=== PATIENT | female | born 1935 | race Caucasian/White ===

== ENCOUNTER 2018-10-03 16:23 | Emergency (ER) | payer MEDICARE, OTHER ==
[~2018-10-03] VITALS: Ht 162.6 cm; Wt 74.8 kg
[~2018-10-03 16:23] MED LIST: AMLO5 PO; ASPI81CH PO; Ativan0.5 MG PO; CHLO25B PO; ERGO400 PO; EZET10 PO; FOSI10 PO; LEVSOD50 PO; MAGNESIUM400 MG PO; VITAMIN D-32000 UNI1 PO
[2018-10-03 18:54] LABS: Source, Urine Clean Catch
[2018-10-03 19:06] LABS: Bilirubin, Urine Neg (Neg); Blood, Urine Neg (Neg); Glucose Qualitative, Urine Neg (Neg); Ketones, Urine Neg (Neg); Leukocyte Esterase, Urine 2+ (Neg); Nitrite, Urine Neg (Neg); Protein, Urine Neg (Neg); Urobilinogen, Urine NORM (Normal)
[2018-10-03 19:06] LABS: BASOPHILS ABSOLUTE AUTO 0.07 K/mm3 (0.00-0.23); BASOPHILS PERCENT AUTO 0 % (0-2); EOSINOPHILS ABSOLUTE AUTO 0.11 K/mm3 (0.00-0.68); EOSINOPHILS PERCENT AUTO 1 % (0-6); Hematocrit 34.6 % (33.0-51.0); IMMATURE GRAN ABSOLUTE AUTO 0.24 K/mm3 (0.00-0.10); IMMATURE GRAN PERCENT AUTO 1 % (0-1); LYMPHOCYTES ABSOLUTE AUTO 2.28 K/mm3 (0.84-5.20); LYMPHOCYTES PERCENT AUTO 13 % (21-46); MONOCYTES ABSOLUTE AUTO 2.01 K/mm3 (0.16-1.47); MONOCYTES PERCENT AUTO 12 % (4-13); Mean Corpuscular HGB 31.7 pg (26.0-34.0); Mean Corpuscular HGB Conc 34.7 g/dL (31.5-36.5); Mean Corpuscular Volume 91 fL (80-100); Mean Platelet Volume 10.5 fL (9.1-12.4); NEUTROPHILS ABSOLUTE AUTO 12.51 K/mm3 (1.96-9.15); NEUTROPHILS PERCENT AUTO 73 % (41-73); Platelet Count 533 K/mm3 (150-400); RDW Coefficient Variation 13.7 % (11.7-14.2); RDW Standard Deviation 44.4 fL (35.1-46.3); Red Blood Cell Count 3.79 M/mm3 (3.80-5.20); White Blood Cell Count 17.22 K/mm3 (4.00-11.30)
[2018-10-03 19:27] LABS: Albumin, Blood 3.9 g/dL (3.4-5.0); Albumin/Globulin Ratio 0.8 (0.8-1.8); Bilirubin, Total 0.8 mg/dL (0.1-1.0); Bun/Creatinine Ratio 32.6 (12.0-20.0); Calcium, Blood 9.3 mg/dL (8.5-10.1); Creatinine, Blood 1.29 mg/dL (0.40-1.00); Globulin, Blood 5.2 g/dL (2.2-4.0); Potassium, Blood 3.7 mmol/L (3.5-5.5); Total Protein, Blood 9.1 g/dL (6.4-8.2)
[2018-10-03 19:38] LABS: Appearance, Urine Clear (Clear); Color, Urine Yellow (P-Yellow)
[2018-10-03 19:39] LABS: Red Blood Cells, Urine 0-2 /hpf (0-2)
[2018-10-03 19:40] LABS: Bacteria Few /hpf; Squamous Epithelial Cells Few /hpf (Few)
[2018-10-03] MEDS ORDERED: CEPH500 PO (21:13)
== END 2018-10-03 21:23 | disposition home or self-care (01) ==
LOC: ER 16:23
PROVIDERS: Emergency Medicine
DX: N39.0 Urinary tract infection, site not specified (principal); I10 Essential (primary) hypertension; Z88.1 Allergy status to other antibiotic agents; Z79.899 Other long term (current) drug therapy; Z79.82 Long term (current) use of aspirin
CPT/HCPCS: 36415; 72125; 80053; 81001; 84443; 85025; 87086; 96361; 96365; 99284-25; J0696; J2270; J7030

== ENCOUNTER → 2018-10-08 | Outpatient (CLI) | payer MEDICARE, OTHER ==
[~2018-10-08] MED LIST changes: +CEPH500 PO
[2018-10-08 17:02] LABS: Bilirubin, Urine Neg (Neg); Blood, Urine Neg (Neg); Glucose Qualitative, Urine Neg (Neg); Ketones, Urine Neg (Neg); Leukocyte Esterase, Urine 1+ (Neg); Nitrite, Urine Neg (Neg); Protein, Urine Neg (Neg); Specific Gravity, Urine 1.015 (1.003-1.022); Urobilinogen, Urine NORM (Normal)
[2018-10-08 17:27] LABS: Appearance, Urine Clear (Clear); Color, Urine Yellow (P-Yellow)
[2018-10-08 17:28] LABS: Bacteria Few /hpf; Red Blood Cells, Urine 0-2 /hpf (0-2); Squamous Epithelial Cells Rare /hpf (Few)
== END ==
LOC: LAB SHORT 16:52 → LAB 16:52
PROVIDERS: Nurse Practitioner Family
DX: N39.0 Urinary tract infection, site not specified (principal)
CPT/HCPCS: 81001; 87086

== ENCOUNTER 2019-05-21 11:56 | Day surgery (SDC) | payer MEDICARE, OTHER ==
[~2019-05-21] VITALS: Ht 162.6 cm; Wt 78.6 kg
[~2019-05-21 11:56] MED LIST changes: +GABA100 PO; +Neurontin600 MG PO; +VITAMIN D32000 UNI2 PO
--- NOTE | 2019-05-21 12:31 | NUR ---
PATIENT WAS ADMITTED FOR HER SCHEDULED PRCEDURE. THE PATIENT STATED THAT SHE HAS BEEN NPO SINCE 2299 ON 05/20. THE PATIENT'S LUNGS ARE CLEAR.
--- NOTE | 2019-05-22 | NUR ---
ASSUMING CARE OF PT AT THIS TIME. REPORT RECIEVED FROM ZI CHRISTIE.
[2019-05-22 04:33] LABS: BASOPHILS ABSOLUTE AUTO 0.05 K/mm3 (0.00-0.23); BASOPHILS PERCENT AUTO 0 % (0-2); EOSINOPHILS PERCENT AUTO 0 % (0-6); Hematocrit 33.9 % (33.0-51.0); Hemoglobin 11.1 g/dL (11.5-16.0); IMMATURE GRAN ABSOLUTE AUTO 0.23 K/mm3 (0.00-0.10); IMMATURE GRAN PERCENT AUTO 1 % (0-1); LYMPHOCYTES ABSOLUTE AUTO 0.94 K/mm3 (0.84-5.20); LYMPHOCYTES PERCENT AUTO 5 % (21-46); MONOCYTES ABSOLUTE AUTO 0.99 K/mm3 (0.16-1.47); MONOCYTES PERCENT AUTO 5 % (4-13); Mean Corpuscular HGB 29.3 pg (26.0-34.0); Mean Corpuscular HGB Conc 32.7 g/dL (31.5-36.5); Mean Corpuscular Volume 89 fL (80-100); Mean Platelet Volume 11.1 fL (9.1-12.4); NEUTROPHILS ABSOLUTE AUTO 17.79 K/mm3 (1.96-9.15); NEUTROPHILS PERCENT AUTO 89 % (41-73); Platelet Count 324 K/mm3 (150-400); RDW Coefficient Variation 13.6 % (11.7-14.2); RDW Standard Deviation 44.1 fL (35.1-46.3); Red Blood Cell Count 3.79 M/mm3 (3.80-5.20)
[2019-05-22 04:57] LABS: Bun/Creatinine Ratio 22.2 (12.0-20.0); Calcium, Blood 8.3 mg/dL (8.5-10.1); Creatinine, Blood 1.44 mg/dL (0.40-1.00); Magnesium, Blood 1.7 mg/dL (1.6-2.4); Potassium, Blood 4.4 mmol/L (3.5-5.5)
--- NOTE | 2019-05-22 06:27 | NUR ---
SHIFT SUMMARY: PT POD #1 FOR RIGHT TOTAL KNEE. VARGAS WRAP AND POLAR PACK IN PLACE. PT VERY DROWSY FROM SURGERY UPON ASSESSMENT AT APPROX 0015. PT NOW A&O X4. REPORTS FULL SENSATION TO EXTREMITIES. PAIN MANAGED WITH SCHED TYLENOL. GIVEN OXY AND TORADOL THIS MORNING PER EMAR. PT OUT OF BED THIS MORNING WITH 1 ASSIST AND FWW. VOIDING WELL. SALINE LOCKED. MAE REG DIET. DENIES N/V. CURRENTLY SITTING IN CHAIR.
[2019-05-22] MEDS ORDERED: ASPI325 PO (10:18)
[2019-05-22] MEDS ORDERED: OXYC5 PO (10:20)
[2019-05-22] MEDS ORDERED: Bactrim Ds Tab1 EACH PO (10:21)
[2019-05-22] MEDS ORDERED: PROM25 PO (10:21)
--- NOTE | 2019-05-22 15:26 | NUR ---
DISCHARGE SUMMARY PT A&OX4, VSS, LEFT FLOOR VIA WC WITH RN TO GO HOME WITH WITH ALL PERSONAL POSSESSIONS INCLUDING DISCHARGE PACKET AND BACTRIM SCRIPT, ALL OTHERS PT HAS IN POSSESSION. DC INS PROVIDED. PT AND REP UNDERSTANDING THOSE INSTRUCTIONS INCLUDING CHANGE DRESSINGS AND FU WITH SG, PT OUTPT, OK TO SHOWER, NO TUB/JACUZZI, FREQ SHORT AMBULAATION, REST/ICE/ELEVATION. IV DC'D.
== END 2019-05-22 15:29 | disposition home or self-care (01) ==
LOC: ORSCMMR 11:56 → ORD 13:45 → ORSCMMR 13:45 → SURS 18:44 → ORSCMMR 05-22 15:29
PROVIDERS: Orthopaedic Surgery
PROC: 8E0YXBZ Computer Assisted Procedure of Lower Extremity (ICD-10-PCS; principal; 2019-05-21 13:45)
PROC: 0SRC0J9 Replacement of Right Knee Joint with Synthetic Substitute, Cemented, Open Approach (ICD-10-PCS; principal; 2019-05-21 13:45)
DX: M17.11 Unilateral primary osteoarthritis, right knee (principal); I12.9 Hypertensive chronic kidney disease with stage 1 through stage 4 chronic kidney disease, or unspecified chronic kidney disease; N18.9 Chronic kidney disease, unspecified; E03.9 Hypothyroidism, unspecified; G62.9 Polyneuropathy, unspecified; Z79.899 Other long term (current) drug therapy
CPT/HCPCS: 36415; 73560-RT; 80048; 83735; 85025; 88300; 97110; 97116; 97162; 97530; C1713; C1776; J0171; J0360; J0690; J0735; J1100; J1885; J2250; J2370; J2405; J2550; J2704; J2765; J2795; J3010; J3370; J7120

== ENCOUNTER 2019-06-15 12:42 | Emergency (ER) | payer MEDICARE, OTHER ==
[~2019-06-15] VITALS: Ht 162.6 cm; Wt 78.5 kg
[~2019-06-15 12:42] MED LIST changes: +ASPI325 PO; +Bactrim Ds Tab1 EACH PO; +OXYC5 PO; +PROM25 PO
[2019-06-15 13:30] LABS: BASOPHILS ABSOLUTE AUTO 0.08 K/mm3 (0.00-0.23); BASOPHILS PERCENT AUTO 1 % (0-2); EOSINOPHILS ABSOLUTE AUTO 0.11 K/mm3 (0.00-0.68); EOSINOPHILS PERCENT AUTO 1 % (0-6); Hematocrit 31.8 % (33.0-51.0); Hemoglobin 10.3 g/dL (11.5-16.0); IMMATURE GRAN ABSOLUTE AUTO 0.12 K/mm3 (0.00-0.10); IMMATURE GRAN PERCENT AUTO 1 % (0-1); LYMPHOCYTES PERCENT AUTO 15 % (21-46); MONOCYTES ABSOLUTE AUTO 1.19 K/mm3 (0.16-1.47); MONOCYTES PERCENT AUTO 10 % (4-13); Mean Corpuscular HGB 28.9 pg (26.0-34.0); Mean Corpuscular HGB Conc 32.4 g/dL (31.5-36.5); Mean Corpuscular Volume 89 fL (80-100); Mean Platelet Volume 10.7 fL (9.1-12.4); NEUTROPHILS ABSOLUTE AUTO 8.85 K/mm3 (1.96-9.15); NEUTROPHILS PERCENT AUTO 73 % (41-73); Platelet Count 488 K/mm3 (150-400); Red Blood Cell Count 3.57 M/mm3 (3.80-5.20); White Blood Cell Count 12.15 K/mm3 (4.00-11.30)
[2019-06-15 13:51] LABS: Albumin, Blood 3.7 g/dL (3.4-5.0); Albumin/Globulin Ratio 0.7 (0.8-1.8); Bilirubin, Total 0.5 mg/dL (0.1-1.0); Bun/Creatinine Ratio 29.4 (12.0-20.0); Calcium, Blood 9.6 mg/dL (8.5-10.1); Creatinine, Blood 1.7 mg/dL (0.40-1.00); Potassium, Blood 4.3 mmol/L (3.5-5.5); Total Protein, Blood 8.7 g/dL (6.4-8.2)
[2019-06-15 14:26] LABS: Source, Urine Clean Catch
[2019-06-15 14:29] LABS: Bilirubin, Urine Neg (Neg); Blood, Urine Neg (Neg); Glucose Qualitative, Urine Neg (Neg); Ketones, Urine Neg (Neg); Leukocyte Esterase, Urine 2+ (Neg); Nitrite, Urine Neg (Neg); Protein, Urine Neg (Neg); Urobilinogen, Urine NORM (Normal)
[2019-06-15 14:31] LABS: Appearance, Urine Clear (Clear); Color, Urine Yellow (P-Yellow)
[2019-06-15 14:36] LABS: Red Blood Cells, Urine Not Seen /hpf (0-2)
[2019-06-15 14:37] LABS: Bacteria Many /hpf; Mucus Light (0-Heavy); Squamous Epithelial Cells Few /hpf (Few)
[2019-06-15] MEDS ORDERED: SUCR1 PO (16:08)
[2019-06-15] MEDS ORDERED: Pepcid20 MG PO (16:08)
[2019-06-15] MEDS ORDERED: Ativan0.5 MG PO (16:08)
== END 2019-06-15 17:50 | disposition home or self-care (01) ==
LOC: ER 12:42
PROVIDERS: Physician Assistant
DX: K29.00 Acute gastritis without bleeding (principal); E86.0 Dehydration; N39.0 Urinary tract infection, site not specified; F41.9 Anxiety disorder, unspecified; I10 Essential (primary) hypertension; Z96.651 Presence of right artificial knee joint; Z88.1 Allergy status to other antibiotic agents; Z79.899 Other long term (current) drug therapy; Z79.82 Long term (current) use of aspirin
CPT/HCPCS: 36415; 74022; 80053; 81001; 83690; 85025; 87077; 87086; 87186; 93005; 93010; 96361; 96365; 96375; 99284-25; C9113; J0696; J2060; J2405; J7030

== ENCOUNTER → 2019-07-02 | Outpatient (CLI) | payer MEDICARE, OTHER ==
[~2019-07-02] MED LIST changes: +Pepcid20 MG PO; +SUCR1 PO
== END | disposition home or self-care (01) ==
LOC: LAB 11:30 → LAB SHORT 11:30
DX: K29.00 Acute gastritis without bleeding (principal)
CPT/HCPCS: 87338

== ENCOUNTER 2021-12-11 16:25 | Inpatient (IN) | payer MEDICARE ==
[~2021-12-11] VITALS: Ht 162.6 cm; Wt 76.5 kg
[2021-12-11 17:03] LABS: BASOPHILS ABSOLUTE AUTO 0.05 K/mm3 (0.00-0.23); BASOPHILS PERCENT AUTO 0 % (0-2); EOSINOPHILS ABSOLUTE AUTO 0.03 K/mm3 (0.00-0.68); EOSINOPHILS PERCENT AUTO 0 % (0-6); Hematocrit 35.7 % (33.0-51.0); IMMATURE GRAN ABSOLUTE AUTO 0.26 K/mm3 (0.00-0.10); IMMATURE GRAN PERCENT AUTO 1 % (0-1); LYMPHOCYTES ABSOLUTE AUTO 0.78 K/mm3 (0.84-5.20); LYMPHOCYTES PERCENT AUTO 4 % (21-46); MONOCYTES ABSOLUTE AUTO 2.01 K/mm3 (0.16-1.47); MONOCYTES PERCENT AUTO 11 % (4-13); Mean Corpuscular HGB 30.2 pg (26.0-34.0); Mean Corpuscular HGB Conc 33.6 g/dL (31.5-36.5); Mean Corpuscular Volume 90 fL (80-100); Mean Platelet Volume 10.8 fL (9.1-12.4); NEUTROPHILS ABSOLUTE AUTO 15.33 K/mm3 (1.96-9.15); NEUTROPHILS PERCENT AUTO 83 % (41-73); Platelet Count 493 K/mm3 (150-400); RDW Coefficient Variation 13.8 % (11.7-14.2); RDW Standard Deviation 44.3 fL (35.1-46.3); Red Blood Cell Count 3.97 M/mm3 (3.80-5.20); White Blood Cell Count 18.46 K/mm3 (4.00-11.30)
[2021-12-11 17:19] LABS: Albumin, Blood 3.6 g/dL (3.4-5.0); Albumin/Globulin Ratio 0.7 (0.8-1.8); Bilirubin, Total 1.1 mg/dL (0.1-1.0); Calcium, Blood 9.5 mg/dL (8.5-10.1); Creatinine, Blood 1.45 mg/dL (0.40-1.00); Globulin, Blood 5.3 g/dL (2.2-4.0); Magnesium, Blood 2.1 mg/dL (1.6-2.4); Potassium, Blood 4.2 mmol/L (3.5-5.5); Total Protein, Blood 8.9 g/dL (6.4-8.2)
[2021-12-11 20:02] LABS: Source, Urine Clean Catch
[2021-12-11 20:05] LABS: Appearance, Urine Hazy (Clear); Bilirubin, Urine Neg (Neg); Blood, Urine 3+ (Neg); Color, Urine Yellow (P-Yellow); Glucose Qualitative, Urine Neg (Neg); Ketones, Urine Neg (Neg); Leukocyte Esterase, Urine 3+ (Neg); Nitrite, Urine Pos (Neg); Protein, Urine 2+ (Neg); Urobilinogen, Urine 1+ (Normal)
[2021-12-11 20:17] LABS: Base Excess Venous -1.9 mmol/L; Bicarbonate Venous 22.7 mmol/L (24.0-30.0); PCO2 Venous 40.2 mmHg (38-42); PO2 Venous 50.9 mmHg (38-42); pH Blood Venous 7.37 (7.34-7.37)
[2021-12-11 20:18] LABS: Bacteria Many /hpf; Red Blood Cells, Urine 0-2 /hpf (0-2); Squamous Epithelial Cells Not Seen /hpf (Few); White Blood Cells, Urine TNTC /hpf (0-5)
[2021-12-11] MEDS ORDERED: EUTHYROX50 MC1 PO (21:27)
[2021-12-11] MEDS ORDERED: EZETIMIBE10 M6 PO (21:27)
[2021-12-11] MEDS ORDERED: THERA-D2000 UNIT PO (21:54)
[2021-12-11] MEDS ORDERED: CHLO25B PO (21:55)
[2021-12-11] MEDS ORDERED: ASPI81CH PO (21:55)
--- NOTE | 2021-12-11 22:53 | NUR ---
ADMIT NOTE 86 YR OLD FEMALE ADMITTED TO FLOOR FROM THE ED WITH DX OF UTI/SEPSIS. SOME ANXIETY SHE FELT SHE WAS ABOUT TO FALL OUT OF THE BED, REASURRANCE GIVEN. SEEMED TO CALM. ALERT TO QUESTIONS ASKED. ORIENTED TO CALL LIGHT AND CALL LIGHT IN REACH
--- NOTE | 2021-12-12 01:14 | NUR ---
SPREADING MACHINE OPERATOR DOCUMENTATION REVIEWED, I AGREE WITH DOCUMENTATION, ETC
[2021-12-12 04:41] LABS: BASOPHILS ABSOLUTE AUTO 0.06 K/mm3 (0.00-0.23); BASOPHILS PERCENT AUTO 0 % (0-2); EOSINOPHILS ABSOLUTE AUTO 0.07 K/mm3 (0.00-0.68); EOSINOPHILS PERCENT AUTO 0 % (0-6); Hematocrit 32.6 % (33.0-51.0); Hemoglobin 10.8 g/dL (11.5-16.0); IMMATURE GRAN ABSOLUTE AUTO 0.17 K/mm3 (0.00-0.10); IMMATURE GRAN PERCENT AUTO 1 % (0-1); LYMPHOCYTES ABSOLUTE AUTO 1.43 K/mm3 (0.84-5.20); LYMPHOCYTES PERCENT AUTO 9 % (21-46); MONOCYTES PERCENT AUTO 15 % (4-13); Mean Corpuscular HGB 29.4 pg (26.0-34.0); Mean Corpuscular HGB Conc 33.1 g/dL (31.5-36.5); Mean Corpuscular Volume 89 fL (80-100); Mean Platelet Volume 10.7 fL (9.1-12.4); NEUTROPHILS ABSOLUTE AUTO 11.77 K/mm3 (1.96-9.15); NEUTROPHILS PERCENT AUTO 74 % (41-73); Platelet Count 434 K/mm3 (150-400); RDW Coefficient Variation 13.7 % (11.7-14.2); RDW Standard Deviation 43.8 fL (35.1-46.3); Red Blood Cell Count 3.67 M/mm3 (3.80-5.20)
--- NOTE | 2021-12-12 04:43 | NUR ---
STOKER INSTALLATION MECHANIC SUMMARY WAS ADMITTED EARLIER WITH SEPSIS DUE TO UTI. ALSO C/O LEFT LEG PAIN/DFFICULTY TO STAND AND WALK. SCHEDULED FOR MRI IN THE AM FOR SAID LEG. ALERT AND ORIENTED X 4. SOME ANXIETY BUT OTHERWISE RESTING QUIELTY. CALL LIGHT IN REACH
[2021-12-12 05:02] LABS: Bun/Creatinine Ratio 27.2 (12.0-20.0); Calcium, Blood 9.1 mg/dL (8.5-10.1); Creatinine, Blood 1.25 mg/dL (0.40-1.00); Potassium, Blood 4.2 mmol/L (3.5-5.5)
--- NOTE | 2021-12-12 18:44 | NUR ---
SHIFT SUMMARY PT A/O X2-3. SHE IS ANXIOUS AND FORGETFUL AT TIMES. SHE HAS SIGNIFICANT PAIN AND WEAKNESS IN HER L LEG. MRI DONE ON HER SPINE. WORKED WITH PHYSICAL THERAPY THIS SHIFT AND IS A 2 MAX ASSIST. TREATED PER EMR FOR PAIN. VSS. WILL REPORT TO HAY RN.
[2021-12-13 04:40] LABS: BASOPHILS ABSOLUTE AUTO 0.05 K/mm3 (0.00-0.23); BASOPHILS PERCENT AUTO 0 % (0-2); EOSINOPHILS ABSOLUTE AUTO 0.08 K/mm3 (0.00-0.68); EOSINOPHILS PERCENT AUTO 1 % (0-6); Hematocrit 31.3 % (33.0-51.0); Hemoglobin 10.2 g/dL (11.5-16.0); IMMATURE GRAN ABSOLUTE AUTO 0.15 K/mm3 (0.00-0.10); IMMATURE GRAN PERCENT AUTO 1 % (0-1); LYMPHOCYTES ABSOLUTE AUTO 1.31 K/mm3 (0.84-5.20); LYMPHOCYTES PERCENT AUTO 9 % (21-46); MONOCYTES ABSOLUTE AUTO 2.07 K/mm3 (0.16-1.47); MONOCYTES PERCENT AUTO 15 % (4-13); Mean Corpuscular HGB 28.9 pg (26.0-34.0); Mean Corpuscular HGB Conc 32.6 g/dL (31.5-36.5); Mean Corpuscular Volume 89 fL (80-100); Mean Platelet Volume 10.6 fL (9.1-12.4); NEUTROPHILS ABSOLUTE AUTO 10.62 K/mm3 (1.96-9.15); NEUTROPHILS PERCENT AUTO 74 % (41-73); Platelet Count 397 K/mm3 (150-400); RDW Coefficient Variation 13.8 % (11.7-14.2); RDW Standard Deviation 44.2 fL (35.1-46.3); Red Blood Cell Count 3.53 M/mm3 (3.80-5.20); White Blood Cell Count 14.28 K/mm3 (4.00-11.30)
[2021-12-13 05:33] LABS: Bun/Creatinine Ratio 26.3 (12.0-20.0); Calcium, Blood 9.1 mg/dL (8.5-10.1); Creatinine, Blood 1.37 mg/dL (0.40-1.00); Potassium, Blood 3.9 mmol/L (3.5-5.5)
--- NOTE | 2021-12-13 06:47 | NUR ---
SHIFT SUMMARY PATIENT ALERT AND ORIENTED X2. MEDICATED PER EMAR FOR PAIN. HAD NO COMPLAINTS OF SHORTNESS OF BREATH. NO ACUTE ISSUES NOTED OVERNIGHT. CALL LIGHT WITHIN REACH. REPORT GIVEN TO ONCOMING RN.
--- NOTE | 2021-12-13 19:38 | NUR ---
SHIFT SUMMARY- PT A/OX3, FORGETFUL AT TIMES. PT MEDICATED WITH TRAMADOL FOR LEFT LEG PAIN AND RIGHT SHOULDER PAIN. PT REPORTS LEFT LEG PAIN GOES FROM HIP TO FOOT. PT REFUSED PAIN MEDICATIONS THIS EVENING. PT PAINFUL TO TOUCH AND VERY SENSITIVE, PRIMARILY TO LEFT LEG. PT VERY WEAK, ONLY ABLE TO SIT AT EDGE OF BED WITH THERAPY, 2 ASSIST TURNING IN BED. LS CLEAR, ON RA. TELE SR AT 93. HEATON IN PLACE PATENT AND DRAINING, PER DR TO BE DC'D 12/14. PT RECEIVED 1L NS TODAY. PT WITH VERY POOR ORAL INTAKE, PT NOT EATING AND ONLY TAKES SIPS. ENSURE OFFIERED BUT DID NOT DRINK, ELECTROLYSIS INVESTIGATOR CONSULT PLACED. NO OTHER ACUTE CHANGES THIS SHIFT.
--- NOTE | 2021-12-14 04:13 | NUR ---
ROTOFORMER BACKTENDER SUMMARY HAS BEEN RESTING QUIETLY WITH FEW INTERRUPTIONS SINCE HS. PO FLUIDS AND DIET INTAKE ENCOURAGED BUT INTAKE STILL POOR. REQUESTED SCD OFF FOR A WHILE IT WAS CAUSING SOME DISCOMFORT TO LEFT LEG/ANKLE. HEATON DRAINING. CALL LIGHT IN REACH.
--- NOTE | 2021-12-14 10:35 | NUR ---
Responding to physician referral for a spiritual care consult. Pt. and spouse welcome my visit. Pt. is very unsettled about her hospitalization, and physical therapy in particular. Through theraputic listening can determine that this anxiety oos rooted by a past experience with aggressive physical therapy following a knee replacement. Provide a calming presence and attempt to normalize the pt. experience. Develop rapport with Pt. and spouse. Pt. displayed evidence of reduced anxiety. Spouse is a calming presence for pt. as well. Prayed for Pt. and spouse. Pt. and spouse both verbalize gratitude for the spiritual care visit.
--- NOTE | 2021-12-14 14:35 | NUR ---
Pt resting in bed upon arrival. This RN is accompanied by student driving instructor Omar. Pt is A&OX4 and reports 8/10 pain in her back and shoulder. Pt denies dyspnea at this time. Pt reports mild to moderate anxiety. Pt's at bedside. Engaged in therapeutic listening as Pt reports living with her in a 2 story home. She tears up as she mentions her sons in May of 2007. She reports having a daughter who lives in [place] and on occasion she comes up to help around the house. Pt's reports having to address family members and their health on his side of the family. He had to assist with finding placement for them and is medical POA, DPOA, and in charge of their estate when they pass. Pt reports uses a can and a walker around the house and is still indepent of her ADLs. Primary RN Suki in to offer anxiety medication to assist with tolerating scheduled MRI. Ended visit to allow Pt to rest. Pt agreeable for this RN to return tomorrow. Spoke with Primary RN Suki and discussed case. Palliative Care will F/U for advance care planning.
--- NOTE | 2021-12-14 18:35 | NUR ---
SHIFT SUMMARY- PT A/OX3 BUT FORGETFUL AT TIMES. PT REPORTS PAIN TO EVERYWHERE, PT VERY SENSITIVE TO TOUCH AND SCREAMS OUT, MOST PAINFUL TO LEFT LEG AND RIGHT SHOULDER. MRI COMPLETED TODAY, ATIVAN GIVEN X1 PRIOR TO MRI. PT ABLE TO SIT AT EDGE OF BED WITH THERAPY TODAY. 2 PERSON TURN IN BED. LS CLEAR, ON RA. TELE SR AT 91, TELE DC'D. PT REPORTS CHRONIC N/T TO BOTTOM OF FEET BUT WORSE ON THE LEFT. FLORINA OLSON'D TODAY, ATTENDS IN PLACE. NO BM TODAY, MIRALAX GIVEN. PT CONTINUES WITH VERY POOR ORAL INTAKE AND WILL ONLY TAKE 1-2 BITES AND SIPS, SPOUSE AT BEDSIDE T/O THE DAY ENCOURAGING PT TO EAT. ENSURES OFFERED BUT WILL ONLY TAKE A SIP. PALLIATIVE AND SPIRITUAL CARE IN TO SEE PT. PT ANXIOUS WITH ANY CARE. NO OTHER ACUTE CHANGES THIS SHIFT.
--- NOTE | 2021-12-15 04:48 | NUR ---
SHIFT SUMMARY: Patient rested throughout the night, VSS on RA, reporting pain to her right shoulder and left leg, patient yells out in pain with any movement and to light touch, new dose of scheduled oxycodone administered this evening, this seemed to help the patients pain a lot as she did not yell out as often with repositioning and attends change, patient is incontnent of urine, having urgency and frequency however minimal output noted, output that is noted is very concentrated, bladder scan complete and noted at only 150, patients PO intake is very poor, will pass on to day shift that patient may benefit from IV fluids, continued to encourage PO intake throughout the shift
[2021-12-15 07:26] LABS: BASOPHILS ABSOLUTE AUTO 0.07 K/mm3 (0.00-0.23); BASOPHILS PERCENT AUTO 1 % (0-2); EOSINOPHILS ABSOLUTE AUTO 0.18 K/mm3 (0.00-0.68); EOSINOPHILS PERCENT AUTO 1 % (0-6); Hematocrit 28.2 % (33.0-51.0); Hemoglobin 10.4 g/dL (11.5-16.0); IMMATURE GRAN PERCENT AUTO 2 % (0-1); LYMPHOCYTES ABSOLUTE AUTO 1.35 K/mm3 (0.84-5.20); LYMPHOCYTES PERCENT AUTO 9 % (21-46); MONOCYTES ABSOLUTE AUTO 1.87 K/mm3 (0.16-1.47); MONOCYTES PERCENT AUTO 13 % (4-13); Mean Corpuscular HGB 34.3 pg (26.0-34.0); Mean Corpuscular HGB Conc 36.9 g/dL (31.5-36.5); Mean Corpuscular Volume 93 fL (80-100); Mean Platelet Volume 10.6 fL (9.1-12.4); NEUTROPHILS ABSOLUTE AUTO 10.68 K/mm3 (1.96-9.15); NEUTROPHILS PERCENT AUTO 74 % (41-73); Platelet Count 389 K/mm3 (150-400); RDW Coefficient Variation 15.1 % (11.7-14.2); RDW Standard Deviation 44.2 fL (35.1-46.3); Red Blood Cell Count 3.03 M/mm3 (3.80-5.20); White Blood Cell Count 14.45 K/mm3 (4.00-11.30)
[2021-12-15 07:42] LABS: Bun/Creatinine Ratio 27.8 (12.0-20.0); Creatinine, Blood 1.26 mg/dL (0.40-1.00); Potassium, Blood 3.5 mmol/L (3.5-5.5)
[2021-12-15 12:27] LABS: Influenza A, PCR NEGATIVE (NEGATIVE); Influenza B, PCR NEGATIVE (NEGATIVE); Resp Syncytial Virus, PCR NEGATIVE (NEGATIVE); SARS-Cov-2 (COVID-19) PCR, MMC NEGATIVE (NEGATIVE)
--- NOTE | 2021-12-15 14:11 | NUR ---
Spiritual Care visit. Pt. is awake and sitting up in bed. Spouse is present. Pt. welcomes my visit. Pt. is displaying evidence of anxiety and nausea, while spouse attends to her. Pt. also displays evidence of reduced pain. Listen empathetically and provide a calming presence. Pt. displayed evidence of lower anxiety. Prayed for pt. Pt. and spouse both verbalized gratitude for the spiritual care visit.
--- NOTE | 2021-12-15 16:23 | NUR ---
Pt resting in bed with her eyes closed upon arrival. Pt is awake but recently received pain medication. Pt's spouse is at bedside. Pt does participate in conversation. Engaged in gentle advanced care planning. Discussed the importance of routine PCP visits. Pt and spouse agreeable to discuss code status. Educated on life sustaining treatments including risk factors and implications of CPR. Pt states she does not want CPR but would like to think about her wishes a little more. Discussed the importance of considering completing an advanced directive. Discussed the importance of appointing a healthcare customer assistance representative. Spouse reports having advanced directives at home but has not completed them yet. Educated on each section to complete and meaning of life support and artificial nutrition for each scenario. Pt reporting needing to void. Assisted CYNTHIA Nathan with placing bed alvarez for Pt. Ended visit to allow privacy. Pt and spouse agreeable for this RN to return tomorrow. Palliative Care will remain available.
--- NOTE | 2021-12-15 18:25 | NUR ---
SHIFT SUMMARY PT REPORTING NEED TO USE BEDPAN MULTIPLE TIMES TODAY. 2 PERSON TURN. HAD 2 EPISODES OF NAUSEA AND VOMITTING THIS MORNING BUT HASN'T HAD IT SINCE. REPORTS FEELING DIZZY AND THEN NAUSEATED THAT GOES AWAY THIS AFTERNOON. SUPPOSITORY GIVEN BUT NO RESULTS YET. EATING A BIT FOR SUPPER WHEN SHE HASN'T EATEN ANYTHING FOR OTHER MEALS TODAY. SIPPING ON ENSURE. SAT ON SIDE OF BED 2 TIMES WITH THERAPIES AND TOLERATED. KPAD APPLIED TO NECK AND R SHOULDER THIS EVENING.
[2021-12-16 05:15] LABS: BASOPHILS ABSOLUTE AUTO 0.06 K/mm3 (0.00-0.23); BASOPHILS PERCENT AUTO 0 % (0-2); EOSINOPHILS ABSOLUTE AUTO 0.18 K/mm3 (0.00-0.68); EOSINOPHILS PERCENT AUTO 1 % (0-6); Hematocrit 28.6 % (33.0-51.0); Hemoglobin 9.8 g/dL (11.5-16.0); IMMATURE GRAN ABSOLUTE AUTO 0.27 K/mm3 (0.00-0.10); IMMATURE GRAN PERCENT AUTO 2 % (0-1); LYMPHOCYTES ABSOLUTE AUTO 1.16 K/mm3 (0.84-5.20); LYMPHOCYTES PERCENT AUTO 7 % (21-46); MONOCYTES ABSOLUTE AUTO 1.78 K/mm3 (0.16-1.47); MONOCYTES PERCENT AUTO 11 % (4-13); Mean Corpuscular HGB 30.8 pg (26.0-34.0); Mean Corpuscular HGB Conc 34.3 g/dL (31.5-36.5); Mean Corpuscular Volume 90 fL (80-100); NEUTROPHILS ABSOLUTE AUTO 13.11 K/mm3 (1.96-9.15); NEUTROPHILS PERCENT AUTO 79 % (41-73); Platelet Count 449 K/mm3 (150-400); RDW Coefficient Variation 13.7 % (11.7-14.2); RDW Standard Deviation 43.8 fL (35.1-46.3); Red Blood Cell Count 3.18 M/mm3 (3.80-5.20); White Blood Cell Count 16.56 K/mm3 (4.00-11.30)
[2021-12-16 05:49] LABS: Bun/Creatinine Ratio 28.4 (12.0-20.0); Calcium, Blood 8.9 mg/dL (8.5-10.1); Creatinine, Blood 1.41 mg/dL (0.40-1.00); Potassium, Blood 3.8 mmol/L (3.5-5.5)
--- NOTE | 2021-12-16 06:17 | NUR ---
SHIFT SUMMARY PT MORE CONFUSED THIS EVENING. SLEPT WELL BUT WOKE UNSURE OF WHERE SHE WAS OR WHAT WAS GOING ON. REORIENTED EASILY BUT WOULD SHORTLY AFTER BE UNAWARE THAT SHE WAS IN THE HOSPITAL. AFEBRILE THIS EVENING. CONTINUES TO HAVE LOW URINE OUTPUT. PAINFUL AND FEARFUL WITH MOVEMENT. PT'S O2 SATS WITH MORNING VITALS 84% ON RA. PLACED PT ON 2 L TO GET O2 SATS > 90%. OTHERWISE VITAL SIGNS STABLE. PREVENTATIVE MEPILEX PLACED TO COCCYX AND HEELS.
--- NOTE | 2021-12-16 14:53 | NUR ---
DISCHARGE NOTE PT DISCHARGED TO [facility], PT TRANSPORTED VIA WHEELCAHIR, WITH AMBULANCE. TWO PERSON PIVOT TRANSFER TO WHEELCHAIR. PT HAD BM RIGHT BEFORE DISCHARGE, WAS SENT IN CLEAN DRY ATTENDS. PACKET WAS SENT WITH TRAFFIC LIEUTENANT, REPORT GIVEN TO KEENAN AT [facility]. @5017
[2021-12-16] MEDS ORDERED: Percocet 10-321 EACH PO (15:45)
[2021-12-16] MEDS ORDERED: OXYCODONE HCL E PO (15:47)
== END 2021-12-16 14:40 | DRG 872 ==
LOC: ER 16:25 → MEDS 21:57 → ENPENDDIS 12-16 13:07 → MEDS 12-16 14:40
PROVIDERS: Emergency Medicine; Family Medicine; Physician Assistant; Student in an Organized Health Care Education/Training Program; ADMIT Internal Medicine
DX: A41.51 Sepsis due to Escherichia coli [E. coli] (principal); N39.0 Urinary tract infection, site not specified; N17.9 Acute kidney failure, unspecified; E87.1 Hypo-osmolality and hyponatremia; Z20.822 Contact with and (suspected) exposure to COVID-19; D75.839 Thrombocytosis, unspecified; R79.89 Other specified abnormal findings of blood chemistry; R63.0 Anorexia; Z68.28 Body mass index [BMI] 28.0-28.9, adult; K59.00 Constipation, unspecified; N18.30 Chronic kidney disease, stage 3 unspecified; I12.9 Hypertensive chronic kidney disease with stage 1 through stage 4 chronic kidney disease, or unspecified chronic kidney disease; M62.81 Muscle weakness (generalized); E03.9 Hypothyroidism, unspecified; M54.50 Low back pain, unspecified; Z96.651 Presence of right artificial knee joint; Z88.1 Allergy status to other antibiotic agents; Z79.899 Other long term (current) drug therapy; Z79.82 Long term (current) use of aspirin; Z90.49 Acquired absence of other specified parts of digestive tract; Z90.89 Acquired absence of other organs; Z98.890 Other specified postprocedural states
CPT/HCPCS: 0241U; 36415; 51702; 71045; 72141; 72146; 72148; 80048; 80053; 81001; 82803; 83605; 83735; 84443; 84484; 85025; 87040; 87077; 87086; 87186; 96374; 97110; 97161; 97166; 97530; 97535; 99285-25; A9270; J0696; J2405; J7030

== ENCOUNTER 2022-01-04 16:02 | Observation (INO) | payer MEDICARE ==
[~2022-01-04] VITALS: Ht 162.6 cm; Wt 70.0 kg
[~2022-01-04 16:02] MED LIST changes: +EUTHYROX50 MC1 PO; +EZETIMIBE10 M6 PO; +OXYCODONE HCL E PO; +Percocet 10-321 EACH PO; +THERA-D2000 UNIT PO
[2022-01-04 16:53] LABS: BASOPHILS ABSOLUTE AUTO 0.06 K/mm3 (0.00-0.23); BASOPHILS PERCENT AUTO 0 % (0-2); EOSINOPHILS ABSOLUTE AUTO 0.14 K/mm3 (0.00-0.68); EOSINOPHILS PERCENT AUTO 1 % (0-6); IMMATURE GRAN ABSOLUTE AUTO 0.13 K/mm3 (0.00-0.10); IMMATURE GRAN PERCENT AUTO 1 % (0-1); LYMPHOCYTES ABSOLUTE AUTO 1.33 K/mm3 (0.84-5.20); LYMPHOCYTES PERCENT AUTO 10 % (21-46); MONOCYTES PERCENT AUTO 11 % (4-13); Mean Corpuscular HGB 32.2 pg (26.0-34.0); Mean Corpuscular HGB Conc 35.7 g/dL (31.5-36.5); Mean Corpuscular Volume 90 fL (80-100); Mean Platelet Volume 10.8 fL (9.1-12.4); NEUTROPHILS ABSOLUTE AUTO 10.31 K/mm3 (1.96-9.15); NEUTROPHILS PERCENT AUTO 77 % (41-73); Platelet Count 683 K/mm3 (150-400); RDW Coefficient Variation 14.2 % (11.7-14.2); RDW Standard Deviation 44.9 fL (35.1-46.3); Red Blood Cell Count 3.11 M/mm3 (3.80-5.20); White Blood Cell Count 13.37 K/mm3 (4.00-11.30)
[2022-01-04 17:00] LABS: Albumin/Globulin Ratio 0.5 (0.8-1.8); Bilirubin, Total 0.8 mg/dL (0.1-1.0); Bun/Creatinine Ratio 33.3 (12.0-20.0); Calcium, Blood 9.6 mg/dL (8.5-10.1); Creatinine, Blood 1.65 mg/dL (0.40-1.00); Globulin, Blood 5.5 g/dL (2.2-4.0); Magnesium, Blood 2.6 mg/dL (1.6-2.4); Potassium, Blood 3.4 mmol/L (3.5-5.5); Total Protein, Blood 8.5 g/dL (6.4-8.2)
[2022-01-04 20:50] LABS: Source, Urine Straight Cath
[2022-01-04 20:58] LABS: Appearance, Urine Hazy (Clear); Blood, Urine 1+ (Neg); Color, Urine Amber (P-Yellow); Glucose Qualitative, Urine Neg (Neg); Ketones, Urine Neg (Neg); Leukocyte Esterase, Urine 3+ (Neg); Nitrite, Urine Neg (Neg); Protein, Urine 1+ (Neg); Urobilinogen, Urine 2+ (Normal)
[2022-01-04 21:07] LABS: Bilirubin, Urine 1+ (Neg)
[2022-01-04 21:09] LABS: Bacteria Many /hpf; Renal Tubular Epi Cast 0-2 /lpf (0); Squamous Epithelial Cells Many /hpf (Few); WBC Cast 0-2 /lpf (0); White Blood Cells, Urine TNTC /hpf (0-5)
[2022-01-04 21:10] LABS: Renal Epithelial Rare /hpf (0-Rare); Transitional Epithelial Cells Mod /hpf (0-Rare)
[2022-01-05 01:44] LABS: BASOPHILS ABSOLUTE AUTO 0.05 K/mm3 (0.00-0.23); BASOPHILS PERCENT AUTO 0 % (0-2); EOSINOPHILS ABSOLUTE AUTO 0.06 K/mm3 (0.00-0.68); EOSINOPHILS PERCENT AUTO 1 % (0-6); Hematocrit 27.6 % (33.0-51.0); IMMATURE GRAN ABSOLUTE AUTO 0.11 K/mm3 (0.00-0.10); IMMATURE GRAN PERCENT AUTO 1 % (0-1); LYMPHOCYTES PERCENT AUTO 11 % (21-46); MONOCYTES ABSOLUTE AUTO 1.02 K/mm3 (0.16-1.47); MONOCYTES PERCENT AUTO 8 % (4-13); Mean Corpuscular HGB 30.3 pg (26.0-34.0); Mean Corpuscular HGB Conc 32.6 g/dL (31.5-36.5); Mean Corpuscular Volume 93 fL (80-100); Mean Platelet Volume 10.8 fL (9.1-12.4); NEUTROPHILS ABSOLUTE AUTO 9.75 K/mm3 (1.96-9.15); NEUTROPHILS PERCENT AUTO 79 % (41-73); Platelet Count 540 K/mm3 (150-400); RDW Coefficient Variation 14.5 % (11.7-14.2); Red Blood Cell Count 2.97 M/mm3 (3.80-5.20); White Blood Cell Count 12.29 K/mm3 (4.00-11.30)
[2022-01-05 01:59] LABS: Bun/Creatinine Ratio 33.1 (12.0-20.0); Calcium, Blood 9.1 mg/dL (8.5-10.1); Creatinine, Blood 1.63 mg/dL (0.40-1.00); Potassium, Blood 3.2 mmol/L (3.5-5.5)
--- NOTE | 2022-01-05 06:11 | NUR ---
admit note and shift summary pt arrived to pcu from ed via ed stretcher shortly after midnight. Pt was slid by 4 staff from ed stretcher to pcu bed. Pt accompanied by . Pt a&ox4, sp02>94% on ra, vss, tele shows nsr, hr 70's. pt denies pain. weak, unable to roll independently. Pt used bed alvarez to void. ns infused per emar, now saline locked. This am, k+ resulted in 3.2. Call placed to md Cantrell. MD Cantrell w/ orders for kcl iv, see emar. Call light in reach. Pt sleeping in bed comfortably.
--- NOTE | 2022-01-05 11:35 | NUR ---
ASSUMPTION OF CARE: I ASSUMED CARE OF THIS PATIENT AT 0620 01/05/22 WAS RESTING, K+ RIDERS WERE SENT FROM PHARMACY. RIGHT AC IV, PATIENT IN NO ACUTE SIGNS OF DISTRESS. WEAKENED ON THE LEFT FOOT. SINUS WITH 1ST DEGREE ACCORDING TO TELEMETRY. AFEBRILE. DENIES CHEST PAIN OR PRESSURE. WILL CONTINUE TO MONITOR AT THIS TIME.
--- NOTE | 2022-01-05 13:13 | NUR ---
Patient is sitting on a chair and alert. Pt tells me her confusion regarding what is going on with her medically and states that her spouse, Duy, is dealing with it of it. She also states that she would rather focus on the positive and not all the negative. She is very tearful when she talks about how overloaded Duy must be and that he is her greatest concern. Pt talks about her Baptism nicolette (they attend [facility]) and solid yazidi support that gives them strength in the midst of challenging times. I normalize pt's experience and provide therpaeutic listening, gentle sexual assault counselor and prayer. Patient responds well and shows signs of greater peace. I will attempt to return to talk to Duy to evaluate what needs he may be experiencing.
--- NOTE | 2022-01-05 15:55 | NUR ---
Palliative Care Consult for Advanced Care Planning. Pt is known to this policy writer typist from previous hospital stay. Pt's is at bedside. Offered therapeutic listening as spouse Duy discusses events leading up to current hospital stay. Pt was released from SNF the day before coming to the hospital. Listened as Duy expresses concerns that the recommendations for therapy are home health. Pt does report working with OT and was able to ambulate to the bathroom and stand to brush her teeth. She reports not having the strength to do this in a long time. Discussed the importance of planning for the future including the potential of needing caregiver support at some point in the future. Continued conversation from last hospital stay regarding wishes for CPR and intubation. Educated on life sustaining treatments including risk factors and implications of CPR. Pt reporting thinking she does not want CPR and states "I just want to go naturally". Spouse Duy is requesting they discuss further amongst each other before making this decision. Continued therapeutic listening and answered questions. Duy report he and Pt have not had the oppurtunity to complete AD at home due to Pt being at SNF since leaving the hospital. Pt and spouse express appreciation and report no other concerns at this time. Palliative Care will remain available.
--- NOTE | 2022-01-05 19:35 | NUR ---
END OF SHIFT: PATIENT HAS HAD INCREASED STRENGTH THROUGH THE DAY RECIEVED 2 K RIDERS, AND IV ROCEPHIN, TOLERATING WELL, HER INTAKE HAS VERY MINIMALLY IMPROVED, ORAL HYDRATION MUCH IMPROVED. DENIES CHEST PAIN/PRESSURE NO SIGNS OF ACUTE DISTRESS. ON RA SPO2 >96%. IV RAC POSITIONAL BUT FLOWSS WELL. PT/OT, PALLIATIVE, SPIRITUAL ALL CONSULTED TODAY, VERY AGREEABLE TO PLAN. NO CONCERNS OR QUESTIONS AT THIS TIME. REPORT GIVEN TO NIGHT RN NO QUESTIONS OR CONCERNS AT THIS TIME.
--- NOTE | 2022-01-05 20:35 | NUR ---
ASSUMED CARE OF PATIENT AT APPROXIMATELY 1900 FROM TIARRA Wasserman RN. PATIENT SITTING IN CHAIR DURING BEDSIDE REPORT; 1 ASSIST OUT OF BED TO CHAIR. PATIENT ALERT AND ORIENTED X4. MEDICAL TELE STATUS; NSR ON TELE; OXYGEN SATURATION ABOVE 90% ON ROOM AIR. PIV S/L.
--- NOTE | 2022-01-06 01:57 | NUR ---
REPORT GIVEN TO MADAY Albright RN.
--- NOTE | 2022-01-06 02:13 | NUR ---
Assumed care of patient from Desiree Lacey RN. Pt appears to be resting comfortably in bed with her eyes closed. No acute distress noted. Bed alarm in place.
[2022-01-06 04:11] LABS: BASOPHILS ABSOLUTE AUTO 0.05 K/mm3 (0.00-0.23); BASOPHILS PERCENT AUTO 1 % (0-2); EOSINOPHILS ABSOLUTE AUTO 0.26 K/mm3 (0.00-0.68); EOSINOPHILS PERCENT AUTO 3 % (0-6); Hematocrit 24.8 % (33.0-51.0); IMMATURE GRAN ABSOLUTE AUTO 0.07 K/mm3 (0.00-0.10); IMMATURE GRAN PERCENT AUTO 1 % (0-1); LYMPHOCYTES ABSOLUTE AUTO 1.28 K/mm3 (0.84-5.20); LYMPHOCYTES PERCENT AUTO 14 % (21-46); MONOCYTES ABSOLUTE AUTO 1.07 K/mm3 (0.16-1.47); MONOCYTES PERCENT AUTO 12 % (4-13); Mean Corpuscular HGB 29.6 pg (26.0-34.0); Mean Corpuscular HGB Conc 32.3 g/dL (31.5-36.5); Mean Corpuscular Volume 92 fL (80-100); Mean Platelet Volume 10.7 fL (9.1-12.4); NEUTROPHILS ABSOLUTE AUTO 6.41 K/mm3 (1.96-9.15); NEUTROPHILS PERCENT AUTO 70 % (41-73); Platelet Count 412 K/mm3 (150-400); RDW Coefficient Variation 14.3 % (11.7-14.2); RDW Standard Deviation 46.1 fL (35.1-46.3); White Blood Cell Count 9.14 K/mm3 (4.00-11.30)
[2022-01-06 04:34] LABS: Bun/Creatinine Ratio 32.1 (12.0-20.0); Calcium, Blood 9.2 mg/dL (8.5-10.1); Creatinine, Blood 1.31 mg/dL (0.40-1.00); Potassium, Blood 3.3 mmol/L (3.5-5.5)
--- NOTE | 2022-01-06 07:00 | NUR ---
NO ACUTE EVENTS OVERNIGHT. PT REMAINS HYPERTENSIVE. NO COMPLAINTS. NO ACUTE DISTRESS NOTED. PT REPORTS BEING ABLE TO SLEEP THROUGH MOST OF THE NIGHT
--- NOTE | 2022-01-06 09:28 | NUR ---
CARE ASSUMPTION THIS RN ASSUMED CARE FROM MADAY PINON AT 0700. VSS. TELE SR 1ST DEGREE BBB 90S. SPO2 >90% ON RA. PATIENT IS ALERT AND ORIENTED X4. PERRLA. NEURO IS INTACT. PATIENT REPORTS NO NUMBNESS OR TINGLING. PATIENT REPORTS NO PAIN. PATIENT REPORTS NO CHEST PAIN/PRESSURE. STRONG RADAIL PULSE BILATERALLY, WEAK PEDIS PULSES BILATERALLY. CAP REFILL <3SECONDS. PATIENT REPORTS NO SHORTNESS OF BREATH THIS AM. LUNG SOUNDS CLEAR AND DIM. PATIENT SKIN IS CLEAN DRY AND INTACT. PATINET ABD IS HYPOACTIVE, SOFT, NONTENDER. SEE SHIFT ASSESSMENT FOR FULL DETAILS. PATIENT IS A ONE ASSIST WITH WALKER AND GAIT BELT. WHEN FIRST GETTING UP PATIENT BECOMES DIZZY, SO SHE GETS UP SLOWLY AND DOESN'T STAND UNTIL DIZZINESS IS GONE. PATIENT IS ABLE TO PERFORM HER OWN ADLS. MORNING CARE DONE THIS AM. PATIENT HAD CONCERNS WITH HER DECREASED APPETITE WHICH SEEMS TO HAVE IMPROVED TODAY. PATIENT DISCUSSED HIS CONCERNS WITH MD ROGEL. PLAN IS FOR PATIENT TO CONTINUE TO RECEIVE IV ABX AND WILL BE DISCHARGED TO [facility] FOR CONTINUED REHAB. PATIENT AND BOTH AWARE OF PLAN. JANN WORKED WITH PHYSICAL THERAPY THIS AM. SPIRITUAL CARE VISITED WITH PATIENT WITH AM. PATIENT CALL LIGHT IS WITHIN REACH. WILL CONTINUE TO MONITOR AND PROVIDE CARE.
--- NOTE | 2022-01-06 09:51 | NUR ---
Spiritual care attempted. Pt. was in restroom and being attended by a nurse. Aakash connected with pts. spouse. Both of us agreed to have this professor of theology return later in the AM.
--- NOTE | 2022-01-06 10:16 | NUR ---
REPORT TO MEDICAL FLOOR RN THIS RN GAVE REPORT TO MEDICAL FLOOR ON RN. PATIENT IS CURRENTLY WORKING WITH PT, BUT WILL TRANSFER WHEN SHE IS DONE. PATIENT SECOND BAG OF POTASSIUM STILL NEEDS TO BE GIVEN, HER FIRST ONE IS RUNNING AT A SLOWER RATE DUE TO BURNING AT THE IV SITE.
--- NOTE | 2022-01-06 12:51 | NUR ---
Spiritual Care Visit (follow up) Pt. is in bed and welcomes my visit. Spouse is present. Re-establish rapport as the pt. is a re-admit. Pt. and spouse are unsettled by the "pressure" to fill out an Advanced Directive. Provided a calming presence and theraputic listening and education regarding the purpose of an advanced directive. The Pt. displayed evidence of apprehension. The spouse displayed evidence of full understanding. The spouse inquired if their was any theological ethical questions to be considered. Gave both pastoral and practical funeral planning counselor. Spouse displayed evidence of agreement and understanding. Prayed for Pt. and spouse. Both verbalized gratitude for the spiritual care visit.
--- NOTE | 2022-01-06 13:00 | NUR ---
TRANSFER PATIENT TRANSFERED FROM PCU AT 1040. PATIENT SETTLED INTO ROOM. POTASSIUM RUNNING IN R A/C IV. PATIENT IS A SBA TO THE BATHROOM WITH A FWW. AT BEDSIDE. WARM BLANKET PROVIDED. PATIENT IS EATING AND DRINKING WELL. PATIENT IS PLEASANT AND COOPERATIVE WITH CARE.
--- NOTE | 2022-01-06 14:57 | NUR ---
REPORT RECIEVED FROM ZI BATES. THIS PT WAS SITTING IN BED TALKING WITH . NO COMPLAINTS OF PAIN, STATED VERY TIRED. WILL CONTINUE TO MONITOR UNTIL SHIFT REPORT.
--- NOTE | 2022-01-06 18:29 | NUR ---
SHIFT SUMMARY PT IS SITTING UP IN BED IN ROOM. SHE HAS DENIED PAIN. IV INFILTRATED. WAS UNABLE TO START A NEW LINE. CHARGE NURSE NOTIFIED PT HAD TO HAVE ULTRASOUND TO PLACE LAST IV. UNABLE TO GET A HOLD OF DR TO ASK IF THEY [place] AN Y SUGGESTIONS. WILL PASS ON TO COMMUNITY BOARD MEMBER. PTS POTASSIUM WAS ALMOST FINISHED WHEN THE LINE INFILTRATED. WILL CONTINUE TO MONITOR.
[2022-01-07 05:28] LABS: BASOPHILS ABSOLUTE AUTO 0.04 K/mm3 (0.00-0.23); BASOPHILS PERCENT AUTO 0 % (0-2); EOSINOPHILS ABSOLUTE AUTO 0.33 K/mm3 (0.00-0.68); EOSINOPHILS PERCENT AUTO 4 % (0-6); Hematocrit 24.2 % (33.0-51.0); Hemoglobin 8.3 g/dL (11.5-16.0); IMMATURE GRAN PERCENT AUTO 1 % (0-1); LYMPHOCYTES ABSOLUTE AUTO 1.63 K/mm3 (0.84-5.20); LYMPHOCYTES PERCENT AUTO 18 % (21-46); MONOCYTES ABSOLUTE AUTO 1.08 K/mm3 (0.16-1.47); MONOCYTES PERCENT AUTO 12 % (4-13); Mean Corpuscular HGB 31.9 pg (26.0-34.0); Mean Corpuscular HGB Conc 34.3 g/dL (31.5-36.5); Mean Corpuscular Volume 93 fL (80-100); Mean Platelet Volume 10.8 fL (9.1-12.4); NEUTROPHILS ABSOLUTE AUTO 6.11 K/mm3 (1.96-9.15); NEUTROPHILS PERCENT AUTO 66 % (41-73); Platelet Count 409 K/mm3 (150-400); RDW Coefficient Variation 14.5 % (11.7-14.2); RDW Standard Deviation 46.3 fL (35.1-46.3); White Blood Cell Count 9.29 K/mm3 (4.00-11.30)
[2022-01-07 05:56] LABS: Bun/Creatinine Ratio 25.2 (12.0-20.0); Calcium, Blood 9.1 mg/dL (8.5-10.1); Creatinine, Blood 1.27 mg/dL (0.40-1.00); Potassium, Blood 3.6 mmol/L (3.5-5.5)
--- NOTE | 2022-01-07 17:05 | NUR ---
SUMMARY PT SITTING UP IN THE CHAIR AT THE BEDSIDE, VISITING WITH HER SPOUSE, PT UP WITH ASSIST TO THE BATHROOM WITH THE WALKER, PT HAS WORKED WITH PT/OT, THEY ARE RECOMMENDING HOME HEALTH AT DISCHARGE, SPOUSE HAS BEEN IN MOST OF THE DAY, PT IS PLEASANT AND COOPERATIVE WITH CARE, VSS, WILL CONT TO MONITOR
--- NOTE | 2022-01-08 04:01 | NUR ---
CREDIT SPECIALIST SUMMARY ADMITTED FOR SEPSIS SECONDARY TO UTI. PT IS FULL CODE. SHE IS ALERT AND ORIENTED X4. PT WITH SOME URGENCY WHEN HAVING TO VOID. SHE REPORTED FEELING SLIGHTLY DIZZY AFTER SITTING UP FOR DINNER AND WAS WEAK GETTING BACK TO BED. PT IMPROVED WITH REST. NO OTHER COMPLAINTS. PLAN FOR POSSIBLE SNF OR HOME HEALTH.
[2022-01-08 05:16] LABS: Hematocrit 23.9 % (33.0-51.0); Hemoglobin 7.9 g/dL (11.5-16.0); Mean Corpuscular HGB 30.5 pg (26.0-34.0); Mean Corpuscular HGB Conc 33.1 g/dL (31.5-36.5); Mean Corpuscular Volume 92 fL (80-100); Mean Platelet Volume 10.7 fL (9.1-12.4); Platelet Count 392 K/mm3 (150-400); RDW Coefficient Variation 14.4 % (11.7-14.2); RDW Standard Deviation 46.7 fL (35.1-46.3); Red Blood Cell Count 2.59 M/mm3 (3.80-5.20); White Blood Cell Count 9.67 K/mm3 (4.00-11.30)
[2022-01-08 05:52] LABS: Bun/Creatinine Ratio 21.6 (12.0-20.0); Calcium, Blood 8.6 mg/dL (8.5-10.1); Creatinine, Blood 1.67 mg/dL (0.40-1.00); Potassium, Blood 3.6 mmol/L (3.5-5.5)
--- NOTE | 2022-01-08 17:58 | NUR ---
SHIFT SUMMARY PT WAS PLEASANT AND PEACEFUL THROUGHOUT THE DURATION OF THE SHIFT. PT ABLE TO STAND W/ ASSISTANCE AND AMBULATE TO THE BATHROOM MULTIPLE TIMES THROUGHOUT THE SHIFT. PT EATING WELL AT MEAL TIMES AND RECEIVED MEDICATIONS ORDERED. PT'S VISITED W/ HER THROUGHOUT THE DAY, PROVIDING SUPPORT. PT AND HER EXPRESSED WISHES TO MEET W/ CASE MANAGEMENT ABOUT THE POSSIBILITY OF GETTING A HOSPITAL BED FOR THEIR HOME. PT RESTING IN ROOM AT THIS TIME.
--- NOTE | 2022-01-08 18:10 | NUR ---
LITHOGRAPHIC RETOUCHER APPRENTICE DOCUMENTATION REVIEWED CHARTING DONE BY STUDENT RN AND AGREE WITH ALL DOCUMENTATION MADE.
--- NOTE | 2022-01-09 04:10 | NUR ---
SHIFT SUMMARY PT HAD AN UNEVENTFUL NIGHT. SLEPT WELL. PT DID CONTINUE TO REPORT PAIN TO LLL LOWER MOORE, MORE SO WITH MOVEMENT OR TOUCH. DENIED ANY NEED FOR PAIN MEDICATION. TELMETRY SR IN THE 60'S. VOIDING WELL. VITAL SIGNS STABLE. NO ACUTE CHANGES THIS SHIFT. WILL CONTINUE TO MONITOR.
[2022-01-09 05:06] LABS: Hematocrit 25.2 % (33.0-51.0); Mean Corpuscular HGB 29.4 pg (26.0-34.0); Mean Corpuscular HGB Conc 31.7 g/dL (31.5-36.5); Mean Corpuscular Volume 93 fL (80-100); Mean Platelet Volume 10.7 fL (9.1-12.4); Platelet Count 370 K/mm3 (150-400); RDW Coefficient Variation 14.7 % (11.7-14.2); RDW Standard Deviation 48.3 fL (35.1-46.3); Red Blood Cell Count 2.72 M/mm3 (3.80-5.20); White Blood Cell Count 9.59 K/mm3 (4.00-11.30)
[2022-01-09 05:32] LABS: Calcium, Blood 8.6 mg/dL (8.5-10.1); Creatinine, Blood 1.73 mg/dL (0.40-1.00); Potassium, Blood 3.6 mmol/L (3.5-5.5)
--- NOTE | 2022-01-09 08:26 | NUR ---
pt laying in bed awake a/ox3, pleasant and cooperative with care, follows commands well, denies pain but reports a bit of nausea but refusing any medications to help, is trying to eat a bit of breakfast, became tearful when told her I have a medication for her appetite, spouce in room assisting her, lungs are clear t/o, resp even and unlabored, on r/a at this time, hrr, tele in place running sr per monitor, see strip, no edema noted, ppp+1, cap refill <3sec, vs stable, afebrile, iv site to lfa s.l. site is clear and patent, btx4, abd flat soft nontender, voids without diff, skin c/w/d, keri, shilpa, call light in reach.
[2022-01-09] MEDS ORDERED: Acetaminophen650 M1 PO (13:33)
[2022-01-09] MEDS ORDERED: DRON2.5 PO (13:34)
[2022-01-09] MEDS ORDERED: MIRT30 PO (13:34)
[2022-01-09] MEDS ORDERED: Amlodipine Bes2.5 MG PO (13:35)
--- NOTE | 2022-01-09 15:06 | NUR ---
pt has been discharged to home, iv removed intact, charge nurse went over discharge instructions with spouce and pt. they verbalized understanding, new medications were faxed to [facility], pt left via wheelchair with director of medical services in attendence with all belongings.
== END 2022-01-09 14:43 | disposition home health service (06) ==
LOC: ER 16:02 → PCU 23:14 → MEDS 23:14 → PCU 23:14 → MEDS 01-06 11:57
PROVIDERS: Hospitalist; Internal Medicine; Physician Assistant; Student in an Organized Health Care Education/Training Program; ADMIT Family Medicine
DX: A41.9 Sepsis, unspecified organism (principal); N39.0 Urinary tract infection, site not specified; D75.838 Other thrombocytosis; E87.6 Hypokalemia; D64.9 Anemia, unspecified; M79.605 Pain in left leg; M51.36 Other intervertebral disc degeneration, lumbar region; M48.061 Spinal stenosis, lumbar region without neurogenic claudication; I12.9 Hypertensive chronic kidney disease with stage 1 through stage 4 chronic kidney disease, or unspecified chronic kidney disease; N18.30 Chronic kidney disease, stage 3 unspecified; E03.9 Hypothyroidism, unspecified; Z88.1 Allergy status to other antibiotic agents
CPT/HCPCS: 36415; 71045; 80048; 80053; 81001; 83605; 83735; 85025; 85027; 87086; 96374; 97110; 97116; 97162; 97166; 97530; 97530-CO; 97530-CQ; 97535; 97535-CO; 99285-25; A9270; J0696; J1650; J3480; J7040; Q0167